=== PATIENT | male | born 1960 | race Caucasian/White ===

== ENCOUNTER 2016-08-24 15:47 | Emergency (ER) | payer OTHER ==
--- NOTE | 2016-08-26 03:47 | ER ---
ADMIT: 08/24/2016 RM/LOC: ER [facility] MR#: [id number] [address] [id number] MAGAN CARBAJAL [address] [place] [address] Emergency Room Report SEX: M AGE: 56 : 1960 DATE: 08/24/2016 TIME: 1547 hours. PRIMARY CARE: Dr. Villalba. Please refer to my T-sheet for complete H and P. HISTORY OF PRESENT ILLNESS: The patient is a 56-year-old, who was at work. He was unloading a trailer when he slipped in the trailer landing on the trailer bed. He hurt his left arm, hit his head. It happened about 10:00 a.m. He said he has been feeling a little dizzy and nauseous. He actually still drove the truck, but felt like his headache was getting worse. Does not want anything for pain. Rates it 4/10. Just wants to be evaluated. PHYSICAL EXAMINATION: VITAL SIGNS: Blood pressure 141/69, pulse 56, respirations 16, temperature 96.9, sat 98%. GENERAL: In no acute distress. HEENT: He has tenderness on his posterior occipital region. No gross findings are noted. Otherwise, atraumatic and normocephalic. NECK: Soft, supple. No pain to palpation. LUNGS: Clear. HEART: Regular. ABDOMEN: Soft. SKIN: No rash. NEURO: He is alert and oriented, no focal findings. EXTREMITIES: His left upper extremity has a diffuse tenderness about the shoulder. His rotator cuff seemed intact. He has no gross bony prominence or tenderness. He is neurovascularly intact distally. EMERGENCY DEPARTMENT COURSE: CT of his head was negative. I reassured him he is ready for discharge. ASSESSMENT: 1. Head contusion with concussion. 2. Left arm strain. 3. Fall. PLAN: Tylenol and Motrin, return if worse. Rest and ice. Follow up with [facility] in 2 to 3 days if not better. Xavier Altman MD/ lily JOB #: [id number] CC: Xavier Altman MD, Attending Physician Alta Villalba MD, Family Physician
== END 2016-08-24 17:20 | disposition home or self-care (01) ==
LOC: ER 15:47
DX: S06.0X0A Concussion without loss of consciousness, initial encounter (principal); S46.912A Strain of unspecified muscle, fascia and tendon at shoulder and upper arm level, left arm, initial encounter; F17.210 Nicotine dependence, cigarettes, uncomplicated; Z79.899 Other long term (current) drug therapy; W01.0XXA Fall on same level from slipping, tripping and stumbling without subsequent striking against object, initial encounter